=== PATIENT | female | born 1940 | race Two or more races ===

== ENCOUNTER 2025-11-12 11:46 | Inpatient (IN) | payer MEDICAID ==
[~2025-11-12] VITALS: Ht 152.4 cm; Wt 68.3 kg
--- NOTE | 2025-11-12 12:04 | ED.PDOC ---
GI ASSESSMENT HPI Comments 85 y/o F, with PMHx of DM and HTN presents to the ED for CC of abdominal pain. Family reports, patient has been c/o abdominal pain with associated nausea and vomiting onset, last night (11/11/25). Family further relays, patient to have constipation. patient denies urinary symptoms, diarrhea, fever, or chills. Chief Complaint: Abdominal Pain Time Seen by MD: 11:55 Reviewed Notes: Nurses Notes, Medications, Allergies Allergies: Coded Allergies: NO KNOWN ALLERGIES (Unverified , 11/12/25) Information Source: Patient Mode of Arrival: Wheelchair Timing: Hours Duration: Since onset Prehospital treatment: None Vomitus: Watery Stool: Impaction Severity: Moderate Recent Hx of: None Pain Location: Diffuse Modifying Factors: Nothing Associated sign and symptoms: Nausea, Vomiting, Constipation, Abdominal Pain Past Medical History PAST MEDICAL HISTORY: DM, HTN Surgical History: Denies all surgeries MATH PROFESSOR History: Denies all MATH PROFESSOR Hx Family History Family History: Unknown Social History Smoker: Non-Smoker Alcohol: Denies ETOH Use Drugs: Denies Drug Use Lives In: Home Constitutional: denies: chills, diaphoresis, fatigue, fever, malaise, sweats, weakness, others EENTM: denies: blurred vision, double vision, ear bleeding, ear discharge, ear drainage, ear pain, ear ringing, eye pain, eye redness, hearing loss, mouth pain, mouth swelling, nasal discharge, nose bleeding, nose congestion, nose pain, photophobia, tearing, throat pain, throat swelling, voice changes, others Respiratory: denies: cough, hemoptysis, orthopnea, SOB at rest, shortness of breath, SOB with excertion, stridor, wheezing, others Cardiovascular: denies: chest pain, dizzy spells, diaphoresis, Dyspnea on exertion, edema, irregular heart beat, left arm pain, lightheadedness, palpitations, PND, syncope, others Gastrointestinal: reports: abdominal pain, nausea, vomiting; denies: abdomen distended, blood streaked bowels, constipated, diarrhea, dysphagia, difficulty swallowing, hematemesis, melena, poor appetite, poor fluid intake, rectal bleeding, rectal pain, others Genitourinary: denies: abnormal vagina bleeding, burning, dyspareunia, dysuria, flank pain, frequency, hematuria, incontinence, pain, , vagina discharge, urgency, others Neurological: denies: dizziness, fainting, headache, left sided numbness, left sided weakness, numbness, paresthesia, pre-existing deficit, right sided numbness, right sided weakness, seizure, speech problems, tingling, tremors, weakness, others Musculoskeletal: denies: back pain, gout, joint pain, joint swelling, muscle pain, muscle stiffness, neck pain, others Integumetry: denies: bruises, change in color, change in hair/nails, dryness, laceration, lesions, lumps, rash, wounds, others Allergic/Immunocompromised: denies: Difficulty Healing, Frequent Infections, Hives, Itching, others Hematologic/Lymphatic: denies: anemia, blood clots, easy bleeding, easy bruising, swollen glands, others Endocrine: denies: excessive hunger, excessive sweating, excessive thirst, excessive urination, flushing, intolerance to cold, intolerance to heat, unexplained weight gain, unexplained weight loss, others Psychiatric: denies: anxiety, bipolar disorder, depression, hopeless, panic disorder, schizophrenia, sleepless, suicidal, others All Other Systems: Reviewed and Negative Physical Exam General Appearance: Moderate Distress HEENT: Normal ENT Inspection, Pharynx Normal, TMs Normal Neck: Full Range of Motion, Non-Tender, Normal, Normal Inspection Respiratory: Chest Non-Tender, Lungs Clear, No Accessory Muscle Use, No Respiratory Distress, Normal Breath Sounds Cardiovascular: No Edema, No JVD, No Murmur, No Gallop, Normal Peripheral Pulses, Regular Rate/Rhythm Breast Exam: Deferred Gastrointestinal: Diffuse Genitalia: Deferred Pelvic: Deferred Rectal: Deferred Extremities: No calf tenderness, Normal capillary refill, Normal inspection, Normal range of motion, Non-tender, No pedal edema Musculoskeletal : Apperance: Normal Neurologic: Alert, historian dramatic arts II-XII nml as Tested, No Motor Deficits, Normal Affect, Normal Mood, No Sensory Deficits Cerebellar Function: NOT DONE Reflexes: NOT DONE Skin: Dry, Normal Color, Warm Peripheral Pulses: 3+ Radial (R), 3+ Radial (L) Lymphatic: No Adenopathy Was a procedure done? Was a procedure done?: No GI differential Dx Differential Diagnosis: Bowel Obstruction, Constipation, Diverticular disease, Esophagitis, Gastritis/PUD, Gastroenteritis, Bacterial, Viral X-Ray, Labs, Meds, VS Vital Signs Date Time Temp Pulse Resp B/P (MAP) Pulse Ox O2 Delivery O2 Flow Rate FiO2 11/12/25 14:16 98.1 72 17 158/76 (103) 96 98.1 11/12/25 12:15 98.1 96 16 163/76 (105) 73 98.1 11/12/25 11:58 73 11/12/25 11:48 98.0 73 22 166/76 96 98.0 Lab Test 11/12/25 12:20 11/12/25 12:14 Range/Units Urine Color Yellow Yellow Urine Clarity Clear Clear Urine pH 5.0 5.0-9.0 Urine Specific [place] 1.022 1.001-1.035 Urine Protein 1+ H Negative Urine Ketones Trace Negative Urine Blood 1+ H Negative /uL Urine Nitrite Negative Negative Urine Bilirubin Negative Negative Urine Urobilinogen Normal Negative mg/dL Urine Leukocyte Esterase Negative Negative /uL Urine RBC 1 0 - 4 /hpf Urine Microscopic WBC 1 0-5 /HPF Urine Squamous Epithelial Cells Few <5 /hpf Urine Bacteria None seen None Seen /hpf Urine Hyaline Casts Few 0 - 2 /lpf Urine Mucus Few None Seen Urine Glucose 4+ H Normal mg/dL White Blood Count 22.4 H 4.4-10.8 10^3/uL Red Blood Count 5.05 4.0-5.20 10^6/uL Hemoglobin 15.0 12.2-16.2 g/dL Hematocrit 45.6 36.0-46.0 % Mean Corpuscular Volume 90.3 80.0-100.0 fL Mean Corpuscular Hemoglobin 29.7 28.0-32.0 pg Mean Corpuscular Hemoglobin Concent 32.9 32.0-36.0 g/dL Red Cell Distribution Width 13.9 11.8-14.3 % Platelet Count 284 140-450 10^3/uL Mean Platelet Volume 8.5 6.9-10.8 fL Neutrophils (%) (Auto) 37.0-80.0 % Lymphocytes (%) (Auto) 10.0-50.0 % Monocytes (%) (Auto) 0.0-12.0 % Basophils (%) (Auto) 0.0-2.0 % Neutrophils # (Auto) 1.6-8.6 10 ^3/uL Lymphocytes # (Auto) 0.4-5.4 10 ^3/uL Monocytes # (Auto) 0-1.3 10 ^3/uL Differential Total Cells Counted 100.0 100 Neutrophils % (Manual) 92 H 37.0-80.0 Band Neutrophils % (Manual) 3 Lymphocytes % (Manual) 3 L 10.0-50.0 Monocytes % (Manual) 2 0-12 Eosinophils % (Manual) 0 0-7 Basophils % (Manual) 0 0.0-2.0 Metamyelocytes % (manual) 0 Myelocytes % (Manual) 0 Promyelocytes % (Manual) 0 Blast Cells % (Manual) 0 Reactive Lymphocytes 0 Platelet Estimate Adequate Red Blood Cell Morphology Normal Sodium Level 132 L 136-145 mmol/L Potassium Level 3.6 3.5-5.1 mmol/L Chloride Level 98 98-107 mmol/L Carbon Dioxide Level 15 L 20-31 mmol/L Anion Gap 19 H 5-15 Blood Urea Nitrogen 27 H 9-23 mg/dL Creatinine 1.42 H 0.550-1.02 mg/dL Glomerular Filtration Rate Calc 37 >90 mL/min BUN/Creatinine Ratio 19.0 10.0-20.0 Serum Glucose 397 H 74-106 mg/dL Hemoglobin A1c 7.0 H <5.7 % A1C Calcium Level 9.3 8.7-10.4 mg/dL Troponin I High Sensitivity 24 </=34 ng/L Lipase 93 H 12-53 U/L Current Medications Medications (Trade) Dose Ordered Sig/Sharon Route Start Time Stop Time Status Last Admin Sodium Chloride 1,000 ml @ 1,000 mls/hr Q1H ONCE IV 11/12/25 12:00 11/12/25 12:59 DC 11/12/25 13:14 Ondansetron HCl (Zofran) 4 mg ONCE ONCE IV 11/12/25 12:00 11/12/25 12:01 DC 11/12/25 13:14 Ketorolac Tromethamine (Toradol Injection) 30 mg ONCE ONCE IV 11/12/25 12:00 11/12/25 12:01 DC 11/12/25 13:14 Azithromycin 250 ml @ 125 mls/hr ONCE ONCE IV 11/12/25 14:30 11/12/25 16:29 DC 11/12/25 17:[address] [address] Ph: [phone] DIAGNOSTIC IMAGING Diagnostic Imaging Report : [id number] Signed PATIENT: LILLI REY ACCT: [id number] UNIT: [id number] : 1940 LOC: ER ROOM / BED: / AGE / SEX: 85 / F ADM STATUS: REG ER SERVICE 1157 ORDERING PHYSICIAN: SHERMAN SCHAEFFER MD PROCEDURE(s): CXRP - CHEST PORTABLE REASON: sob ORDER NUMBER(s): [id number], ACCESSION NUMBER(s): [id number] CLINICAL HISTORY: sob TECHNIQUE: Single view of the chest was obtained. COMPARISON: None FINDINGS: The heart size is borderline enlarged with pulmonary vascular congestion. There is a large hiatal hernia with adjacent atelectasis. There are patchy right basilar opacities. IMPRESSION: Pulmonary vascular congestion. Patchy right basilar opacities, likely atelectasis or infection. Large hiatal hernia. ATED BY: LUZ MARINA MONTES MD DICTATED DATE/TIME: 11/12/25 1234 SIGNED BY: LUZ MARINA MONTES MD SIGNED DATE/TIME: 11/12/25 1234 CC: [place] [address] Ph: [phone] DIAGNOSTIC IMAGING Diagnostic Imaging Report : [id number] Signed PATIENT: LILLI REY ACCT: [id number] UNIT: [id number] : 1940 LOC: OVERFLOW ROOM / BED: 1010-ER / A AGE / SEX: 85 / F ADM STATUS: ADM IN SERVICE 1511 ORDERING PHYSICIAN: LEANNE MILES PHP ENGINEER PROCEDURE(s): ABPL - CT AB PEL WO CON-NO ORAL OR IV REASON: abd pain ORDER NUMBER(s): [id number], ACCESSION NUMBER(s): [id number] CLINICAL HISTORY: abd pain TECHNIQUE: CT of the abdomen and pelvis was performed without intravenous contrast. This exam was performed according to our departmental dose optimization program. Up-to-date CT equipment and radiation dose reduction techniques are utilized as appropriate. WID: COMPARISON: None FINDINGS: Lung bases: Trace left pleural effusion. Coronary artery calcium. Liver: Extensive intraparenchymal portal venous gas.. Gallbladder and bile ducts: Status post cholecystectomy. Spleen: Unremarkable. Pancreas: Unremarkable. Adrenals: Unremarkable. Kidneys and ureters: Unremarkable. Bowel: Near-complete intrathoracic positioning of the stomach secondary to a large hiatal hernia. There circumferential pneumatosis within the gastric body and fundus. There is pneumatosis throughout the entirety of the mid to distal small bowel. The colon is unremarkable. There is no obstruction. Bladder: Unremarkable. Reproductive organs: Unremarkable. Lymph nodes: Unremarkable. Vessels: Extensive atherosclerotic calcifications. Bulky calcification of the origin of the superior mesenteric artery. Abdominal wall: Unremarkable. Bones: Severe chronic compression fracture of L1 with approximately 90% height loss. There is 4 mm of retropulsion. The bones are demineralized.. Other: Unremarkable. IMPRESSION: Extensive mid to distal small bowel pneumatosis with portal venous gas and extensive pneumatosis within the stomach which is intrathoracic in position secondary to hiatal hernia. Findings are compatible with bowel ischemia. No free air. But bulky calcific plaque within the abdominal aorta, notably at the origin of the superior mesenteric artery which may be chronically occluded or highly stenosed. Consider CTA angiogram for further assessment given the findings above. Chronic L1 compression fracture with 90% height loss Critical Result: bowel ischemia Findings discussed with SHERMAN SCHAEFFER at 11/12/2025 05:00 PM, and acknowledged receipt and understanding of the findings. .. ATED BY: ROYAL RIOS MD DICTATED DATE/TIME: 11/12/251699 SIGNED BY: ROYAL RIOS MD SIGNED DATE/TIME: 11/12/251699 CC: Patient alert. Came in because of abdominal pain. Vitals stable. Answering all questions. Possible pneumonia. Chest x-ray reviewed does show congestion with pneumonia. Establish intravenous access. Was given Zosyn. Was given azithromycin. Blood sugar elevated. CT scan of the abdomen reviewed does show ischemic bowel. Spoke with surgeon. Unable to operate because of the extensive involvement. Family did not want any heroic measures. She is DNR. Surgeon has spoken to the family they all agree only palliative care. Pain control. Spoke with [facility] they also agree no surgery. Explained to the family. Continue monitoring. Time of 1ST Reevaluation: 12:25 Reevaluation 1ST: Unchanged Patient Education/Counseling: Diagnosis, Treatment Family Education/Counseling: Diagnosis, Treatment SEPSIS Sepsis Screen Date sepsis recognized/suspect: Nov 12, 2025 Time Sepsis recognized/suspect: 1150 Recent Procedure: No On Antibiotic Therapy: No Respiratory Rate >20: Yes Heart Rate >90: Yes Temp<36 C (96.8 F) or >38.3 C: No SBP <90 or MAP <65 mmHG: No New Acute Mental Status Change: No Is the patient on CPAP, BIPAP,: No Physician Orders Electrocardigram (11/12/25 11:51) Chest Portable (11/12/25 11:57) Covid19 Antigen Jovanna (11/12/25 ) Rapid Influenza A&B (11/12/25 14:41) Vital Signs Date Time Temp Pulse Resp B/P (MAP) Pulse Ox O2 Delivery O2 Flow Rate FiO2 11/12/25 14:16 98.1 72 17 158/76 (103) 96 98.1 11/12/25 12:15 98.1 96 16 163/76 (105) 73 98.1 11/12/25 11:58 73 11/12/25 11:48 98.0 73 22 166/76 96 98.0 Laboratory Tests Test 11/12/25 12:14 White Blood Count 22.4 10^3/uL (4.4-10.8) H Medications Medications Dose Ordered Sig/Sharon Route Start Time Stop Time Status Last Admin Dose Admin Azithromycin 250 ml @ 125 mls/hr ONCE ONCE IV 11/12/25 14:30 11/12/25 16:29 DC 11/12/25 17:12 Ketorolac Tromethamine 30 mg ONCE ONCE IV 11/12/25 12:00 11/12/25 12:01 DC 11/12/25 13:14 Ondansetron HCl 4 mg ONCE ONCE IV 11/12/25 12:00 11/12/25 12:01 DC 11/12/25 13:14 Sodium Chloride 1,000 ml @ 1,000 mls/hr Q1H ONCE IV 11/12/25 12:00 11/12/25 12:59 DC 11/12/25 13:14 Departure 1 Departure Time of Disposition: 14:21 Impression: Primary Impression: Pneumonia Qualified Codes: J18.9 - Pneumonia, unspecified organism Additional Impressions: Sepsis, unspecified organism Qualified Codes: A41.9 - Sepsis, unspecified organism Ischemic bowel disease Disposition: 09 ADMITTED INPATIENT Admit to: Med Surg Condition: Guarded Critical Care Note Critical Care Time?: Yes (90 min-critical care time only) Stability Stability form required: No Heart Score Heart Score: Heart Score Response (Comments) Value History Slightly Suspicious 0 EKG Normal 0 Age >65 2 Risk Factors >3 or Hx ASHD 2 Troponin Normal limit 0 Total 4 I personally scribed for SHERMAN SCHAEFFER MD ([email or web address]) on 11/12/25 at 12:04. Electronically submitted by Nicole Collins ([email or web address]). I personally scribed for SHERMAN SCHAEFFER MD ([email or web address]) on 11/12/25 at 13:13. Electronically submitted by Nicole Collins ([email or web address]). I personally scribed for SHERMAN SCHAEFFER MD ([email or web address]) on 11/12/25 at 17:42. Electronically submitted by Izabela Wu ([email or web address]). SHERMAN SCHAEFFER MD Nov 12, 2025 12:04
[2025-11-12 12:26] LABS: Hematocrit 45.6 % (36.0-46.0); Hemoglobin 15.0 g/dL (12.2-16.2); Mean Corpuscular Hemoglobin 29.7 pg (28.0-32.0); Mean Corpuscular Volume 90.3 fL (80.0-100.0)
[2025-11-12 12:39] LABS: Potassium 3.6 mmol/L (3.5-5.1)
[2025-11-12 12:40] LABS: Anion Gap 19 (5-15); Calcium 9.3 mg/dL (8.7-10.4)
[2025-11-12 12:42] LABS: Carbon Dioxide 15 mmol/L (20-31); Chloride 98 mmol/L (98-107); Sodium 132 mmol/L (136-145)
[2025-11-12 12:45] LABS: BUN/Creatinine Ratio 19.0 (10.0-20.0)
[2025-11-12 12:46] LABS: Blood Urea Nitrogen 27 mg/dL (9-23); Glucose 397 mg/dL (74-106)
--- NOTE | 2025-11-12 12:52 | DVH ---
CLINICAL HISTORY: sob TECHNIQUE: Single view of the chest was obtained. COMPARISON: None FINDINGS: The heart size is borderline enlarged with pulmonary vascular congestion. There is a large hiatal hernia with adjacent atelectasis. There are patchy right basilar opacities. IMPRESSION: Pulmonary vascular congestion. Patchy right basilar opacities, likely atelectasis or infection. Large hiatal hernia.
[2025-11-12 12:57] LABS: RBC Morphology Normal; Total Cells Counted 100.0 (100)
[2025-11-12] MEDS: ONDANSETRON HCL 4 MG/2 ML VIAL IV ONE (13:14)
[2025-11-12] MEDS: KETOROLAC TROMETH 30 MG/ML 1ML VIAL IV ONE (13:14)
[2025-11-12] MEDS: SODIUM CHLORIDE 0.9% 1,000 ML IV ONE (13:14)
[2025-11-12] MEDS ORDERED: PIPERACILLIN-TAZOB 3.375GM 100 ML IV ONE (14:30)
[2025-11-12] MEDS ORDERED: HYDROcodone-ACET 5/325MG TAB PO PRN ×2 (15:15→22:30)
[2025-11-12] MEDS ORDERED: DEXTROSE (50%) 50ML SYRG IV PRN ×2 (15:15→22:30)
[2025-11-12] MEDS ORDERED: ACETAMINOPHEN 325 MG TAB PO PRN ×2 (15:15→22:30)
[2025-11-12] MEDS ORDERED: hydrALAZINE HCL 20 MG/ML VL IV PRN ×2 (15:30→22:30)
--- NOTE | 2025-11-12 15:32 | DVHHP2 ---
History of Present Illness Reason for Visit: Abdominal pain History of Present Illness 85-year-old Armenian speaking female presents to the ED accompanied by her granddaughter for evaluation of abdominal pain associated with nausea and vomiting that began yesterday. Patient denies fever, chills, cough, shortness of breath, chest pain, diarrhea, constipation, melena, hematochezia, or urinary symptoms. No sick contacts or recent travel reported. Past medical history of diabetes type 2 and hypertension. Past Medical History As stated in HPI Past Surgical History Denies Family History Reviewed, non-contributory to the management of this case. Past Social History The patient lives at home, denies smoking, alcohol or illicit drugs abuse. Review of Systems Constitutional: Yes: Malaise; No: Fever, Chills, Sweats, Weakness, Other Eyes: No: Pain, Vision change, Conjunctivae inflammation, Eyelid inflammation, Other, Redness ENT: No: Ear pain, Ear discharge, Nose pain, Nose discharge, Nose congestion, Mouth pain, Mouth swelling, Throat pain, Throat swelling, Other Respiratory: No: Cough, Dry, Shortness of breath, SOB with excertion, Wheezing, Hemoptysis, Pleuritic Pain, Sputum, Wheezing, Other Cardiovascular: No: Chest Pain, Palpitations, Orthopnea, Paroxysmal Noc. Dyspnea, Edema, Lt Headedness, Other Gastrointestinal: Nausea, Vomiting, Abdominal Pain; No: Diarrhea, Constipation, Melena, Hematochezia, Other Genitourinary: No Dysuria, No Frequency, No Incontinence, No Hematuria, No Retention, No Other Musculoskeletal: No: other, neck pain, shoulder pain, arm pain, back pain, hand pain, leg pain, foot pain Skin: No: Rash, Lesions, Jaundice, Bruising, Other Neurological: No: Weakness, Numbness, Incoordination, Change in speech, Confusion, Seizures, Other Allergies: Coded Allergies: NO KNOWN ALLERGIES (Unverified , 11/12/25) Exam Vital Signs Vital Signs Date Time Temp Pulse Resp B/P (MAP) Pulse Ox O2 Delivery O2 Flow Rate FiO2 11/12/25 14:16 98.1 72 17 158/76 (103) 96 98.1 General Appearance: Alert, Oriented X3, Cooperative, mild distress HEENT: Atraumatic, PERRLA, EOMI Respiratory: Other (Diminished lung sounds) Cardiovascular: Regular rate, Normal S1, Normal S2 Abdominal: Normal bowel sounds, Soft, Other (Generalized tenderness in palpation) Extremities: No clubbing, No cyanosis, No edema Skin: No rashes, No breakdown Neuro: Normal gait Psych/Mental Status: Mental status NL Labs/Xrays Labs Test 11/12/25 12:14 Range/Units White Blood Count 22.4 H 4.4-10.8 10^3/uL Red Blood Count 5.05 4.0-5.20 10^6/uL Hemoglobin 15.0 12.2-16.2 g/dL Hematocrit 45.6 36.0-46.0 % Mean Corpuscular Volume 90.3 80.0-100.0 fL Mean Corpuscular Hemoglobin 29.7 28.0-32.0 pg Mean Corpuscular Hemoglobin Concent 32.9 32.0-36.0 g/dL Red Cell Distribution Width 13.9 11.8-14.3 % Platelet Count 284 140-450 10^3/uL Mean Platelet Volume 8.5 6.9-10.8 fL Neutrophils (%) (Auto) 37.0-80.0 % Lymphocytes (%) (Auto) 10.0-50.0 % Monocytes (%) (Auto) 0.0-12.0 % Basophils (%) (Auto) 0.0-2.0 % Neutrophils # (Auto) 1.6-8.6 10 ^3/uL Lymphocytes # (Auto) 0.4-5.4 10 ^3/uL Monocytes # (Auto) 0-1.3 10 ^3/uL Differential Total Cells Counted 100.0 100 Neutrophils % (Manual) 92 H 37.0-80.0 Band Neutrophils % (Manual) 3 Lymphocytes % (Manual) 3 L 10.0-50.0 Monocytes % (Manual) 2 0-12 Eosinophils % (Manual) 0 0-7 Basophils % (Manual) 0 0.0-2.0 Metamyelocytes % (manual) 0 Myelocytes % (Manual) 0 Promyelocytes % (Manual) 0 Blast Cells % (Manual) 0 Reactive Lymphocytes 0 Platelet Estimate Adequate Red Blood Cell Morphology Normal Sodium Level 132 L 136-145 mmol/L Potassium Level 3.6 3.5-5.1 mmol/L Chloride Level 98 98-107 mmol/L Carbon Dioxide Level 15 L 20-31 mmol/L Anion Gap 19 H 5-15 Blood Urea Nitrogen 27 H 9-23 mg/dL Creatinine 1.42 H 0.550-1.02 mg/dL Glomerular Filtration Rate Calc 37 >90 mL/min BUN/Creatinine Ratio 19.0 10.0-20.0 Serum Glucose 397 H 74-106 mg/dL Calcium Level 9.3 8.7-10.4 mg/dL Troponin I High Sensitivity 24 </=34 ng/L PROCEDURE(s): CXRP - CHEST PORTABLE REASON: sob ORDER NUMBER(s): [id number], ACCESSION NUMBER(s): [id number] CLINICAL HISTORY: sob TECHNIQUE: Single view of the chest was obtained. COMPARISON: None FINDINGS: The heart size is borderline enlarged with pulmonary vascular congestion. There is a large hiatal hernia with adjacent atelectasis. There are patchy right basilar opacities. IMPRESSION: Pulmonary vascular congestion. Patchy right basilar opacities, likely atelectasis or infection. Large hiatal hernia. SEPSIS Sepsis Screen Date sepsis recognized/suspect: Nov 12, 2025 Time Sepsis recognized/suspect: 1150 Recent Procedure: No On Antibiotic Therapy: No Respiratory Rate >20: Yes Heart Rate >90: Yes Temp<36 C (96.8 F) or >38.3 C: No SBP <90 or MAP <65 mmHG: No New Acute Mental Status Change: No Is the patient on CPAP, BIPAP,: No Physician Orders Electrocardigram (11/12/25 11:51) Chest Portable (11/12/25 11:57) Urinalysis (11/12/25 11:57) Piperacillin-Tazob 3.375gm (Zosyn 3.375g (11/12/25 14:30) Azithromycin 500mg/250ml (Zithromax 500m (11/12/25 14:30) Covid19 Antigen Jovanna (11/12/25 ) Rapid Influenza A&B (11/12/25 14:41) Urine Bacterial Culture (11/12/25 15:11) Blood Culture (11/12/25 15:11) Ct Ab Pel Wo Con-No Oral Or Iv (11/12/25 15:11) Pantoprazole (Protonix) (11/12/25 15:15) Pantoprazole (Protonix) (11/13/25 10:00) Azithromycin 500mg/250ml (Zithromax 500m (11/13/25 10:00) Ceftriaxone Ivpb Rocephin (11/13/25 09:00) Glucose Blood (Accu-Chek Comfort Curve T (11/12/25 17:00) Mild Sliding Scale (11/12/25 17:00) Dextrose 50% Syringe (11/12/25 15:15) Hemoglobin A1c (11/12/25 15:11) Admit (11/12/25 15:11) Code Status (11/12/25 15:11) 0.9% Ns 1000 Ml (11/12/25 15:15) Hydrocodone-Acet 5/325mg Tab ([place] 5/32 (11/12/25 15:15) Ondansetron Hcl (Zofran) (11/12/25 15:15) Enoxaparin Sodium (Lovenox) (11/13/25 10:00) Fall Risk Precautions In Place QSHIFT (11/12/25 15:11) Complete Blood Count (11/13/25 04:00) Comprehensive Metabolic Panel (11/13/25 04:00) Condition: Fair (11/12/25 15:11) Acetaminophen Tablet (Tylenol Tablet) (11/12/25 15:15) Clear Liq Diet (11/12/25 Dinner) Morphine Sulfate Injection (11/12/25 15:15) Lipase (11/12/25 15:11) Lactic Acid W/ Reflex Order (11/12/25 15:11) Vital Signs Date Time Temp Pulse Resp B/P (MAP) Pulse Ox O2 Delivery O2 Flow Rate FiO2 11/12/25 14:16 98.1 72 17 158/76 (103) 96 98.1 11/12/25 12:15 98.1 96 16 163/76 (105) 73 98.1 11/12/25 11:58 73 11/12/25 11:48 98.0 73 22 166/76 96 98.0 Laboratory Tests Test 11/12/25 12:14 White Blood Count 22.4 10^3/uL (4.4-10.8) H Medications Medications Dose Ordered Sig/Sharon Route Start Time Stop Time Status Last Admin Dose Admin Ketorolac Tromethamine 30 mg ONCE ONCE IV 11/12/25 12:00 11/12/25 12:01 DC 11/12/25 13:14 30 MG Ondansetron HCl 4 mg ONCE ONCE IV 11/12/25 12:00 11/12/25 12:01 DC 11/12/25 13:14 4 MG Sodium Chloride 1,000 ml @ 1,000 mls/hr Q1H ONCE IV 11/12/25 12:00 11/12/25 12:59 DC 11/12/25 13:14 1,000 MLS/HR Assessment/Plan Assessment/Plan # Acute abdominal pain with nausea and vomiting # rule out bowel obstruction large hiatal hernia seen in x-ray Admit to medical-surgical unit Clear liquid diet and advance as tolerated IV fluid Antiemetics CT abdomen/pelvis ordered UA and urine culture pending PPI # possible pneumonia given opacity and leukocytosis # pulmonary vascular congestion Empiric antibiotic azithromycin and ceftriaxone Blood and sputum culture Check for COVID and influenza Repeat chest x-ray in a.m. # LILY likely VMN IV fluid hydration Avoid nephrotoxins Monitor kidney function # DM type 2 Insulin sliding scale Check A1c # hypertension Continue with antihypertensive medication Monitor BP DVT, PPI prophylaxis Medical plan discussed with patient and daughter at the bedside Plan discussed with: Patient, Daughter My Orders Orders - LEANNE MILES [employer] Procedure Category Date Status Time Covid19 Antigen Jovanna LAB 11/12/25 Logged Rapid Influenza A&B LAB 11/12/25 Logged 14:41 Urine Bacterial VASU 11/12/25 Verified Culture 15:11 Blood Culture VASU 11/12/25 Verified 15:11 Ct Ab Pel Wo Con-No CT 11/12/25 Verified Oral Or Iv 15:11 Pantoprazole PHA 11/12/25 Verified (Protonix) 15:15 Pantoprazole PHA 11/13/25 Verified (Protonix) 10:00 Azithromycin PHA 11/13/25 Verified 500mg/250ml 10:00 Ceftriaxone Ivpb PHA 11/13/25 Verified Rocephin 09:00 Glucose Blood PHA 11/12/25 Verified (Accu-Chek Comfort 17:00 Mild Sliding Scale PHA 11/12/25 Verified 17:00 Dextrose 50% Syringe PHA 11/12/25 Verified 15:15 Hemoglobin A1c LAB 11/12/25 Verified 15:11 Admit ADMIT 11/12/25 Verified 15:11 Code Status CODE 11/12/25 Verified 15:11 0.9% Ns 1000 Ml PHA 11/12/25 Verified 15:15 Hydrocodone-Acet PHA 11/12/25 Verified 5/325mg Tab ([place] 15:15 Ondansetron Hcl PHA 11/12/25 Verified (Zofran) 15:15 Enoxaparin Sodium PHA 11/13/25 Verified (Lovenox) 10:00 Fall Risk Precautions EMILY 11/12/[address] 15:11 Complete Blood Count LAB 11/13/25 Verified 04:00 Comprehensive LAB 11/13/25 Verified Metabolic Panel 04:00 Condition: Fair EMILY 11/12/25 Verified 15:11 Acetaminophen Tablet PHA 11/12/25 Verified (Tylenol Tablet) 15:15 Clear Liq Diet DIET 11/12/25 Verified Dinner Morphine Sulfate PHA 11/12/25 Verified Injection 15:15 Lipase LAB 11/12/25 Verified 15:11 Lactic Acid W/ Reflex LAB 11/12/25 Verified Order 15:11 Date of Service: Nov 12, 2025 Billing Provider: LEANNE MILES Common Visit Codes: [id number] INP/OBS CARE (HIGH) LEANNE MILES Nov 12, 2025 15:32
[2025-11-12 15:45] LABS: Urine Protein, UAD 1+ (Negative)
[2025-11-12 16:41] LABS: Lactic Acid w/Reflex 4.4 mmol/L (0.4-2.0)
--- NOTE | 2025-11-12 17:00 | DVH ---
CLINICAL HISTORY: abd pain TECHNIQUE: CT of the abdomen and pelvis was performed without intravenous contrast. This exam was performed according to our departmental dose optimization program. Up-to-date CT equipment and radiation dose reduction techniques are utilized as appropriate. WID: COMPARISON: None FINDINGS: Lung bases: Trace left pleural effusion. Coronary artery calcium. Liver: Extensive intraparenchymal portal venous gas.. Gallbladder and bile ducts: Status post cholecystectomy. Spleen: Unremarkable. Pancreas: Unremarkable. Adrenals: Unremarkable. Kidneys and ureters: Unremarkable. Bowel: Near-complete intrathoracic positioning of the stomach secondary to a large hiatal hernia. There circumferential pneumatosis within the gastric body and fundus. There is pneumatosis throughout the entirety of the mid to distal small bowel. The colon is unremarkable. There is no obstruction. Bladder: Unremarkable. Reproductive organs: Unremarkable. Lymph nodes: Unremarkable. Vessels: Extensive atherosclerotic calcifications. Bulky calcification of the origin of the superior mesenteric artery. Abdominal wall: Unremarkable. Bones: Severe chronic compression fracture of L1 with approximately 90% height loss. There is 4 mm of retropulsion. The bones are demineralized.. Other: Unremarkable. IMPRESSION: Extensive mid to distal small bowel pneumatosis with portal venous gas and extensive pneumatosis within the stomach which is intrathoracic in position secondary to hiatal hernia. Findings are compatible with bowel ischemia. No free air. But bulky calcific plaque within the abdominal aorta, notably at the origin of the superior mesenteric artery which may be chronically occluded or highly stenosed. Consider CTA angiogram for further assessment given the findings above. Chronic L1 compression fracture with 90% height loss Critical Result: bowel ischemia Findings discussed with SHERMAN SCHAEFFER at 11/12/2025 05:00 PM, and acknowledged receipt and understanding of the findings. ..
[2025-11-12] MEDS: MORPHINE SULFATE 4 MG/ML SYR/VIAL IV PRN ×2 (17:11→22:46)
[2025-11-12] MEDS: ONDANSETRON HCL 4 MG/2 ML VIAL IV PRN (17:11)
[2025-11-12] MEDS: PANTOPRAZOLE 40 MG/10 ML VIAL INJ IV ONE (17:12)
[2025-11-12] MEDS: AZITHROMYCIN 500MG/250ML 250 ML IV ONE (17:12)
[2025-11-12] MEDS: ACCU-CHEK COMFORT CURVE STRIP VI SCH (17:17)
[2025-11-12] MEDS ORDERED: NITROGLYCERIN 0.4 MG SL TAB SL PRN (18:15)
[2025-11-12] MEDS ORDERED: MORPHINE SULFATE 4 MG/ML SYR/VIAL IV PRN (18:15)
--- NOTE | 2025-11-12 18:29 | DVHINCON2 ---
Consultation - Surgical Date Seen: Nov 12, 2025 Referring Physician Reason for Consultation Pneumatosis intestinalis History of Present Illness History of Present Illness Mrs. Mccray is a 85-year-old female who presented today to the ED with abdominal pain and distention that started yesterday around 7:00 p.m. the pain kept progressing all throughout the night, to the point that she was not able to sleep all night. Is associated with nausea but no vomiting. Denies any recent bowel movements since the pain started. Before the pain started patient was well and without complaints. Patient states that she is tired and sleepy. Past Medical/Surgical History Past Medical/Surgical History PMH diabetes, hypertension PSH laparoscopic cholecystectomy Family and Social History Family and Social History Family history noncontributory Allergies and medications Allergies: Coded Allergies: NO KNOWN ALLERGIES (Unverified , 11/12/25) Review of systems Review of Systems: Deferred Examination Vital signs Vital Signs Date Time Temp Pulse Resp B/P (MAP) Pulse Ox O2 Delivery O2 Flow Rate FiO2 11/12/25 17:11 65 15 112/63 11/12/25 14:16 98.1 96 98.1 Medications Current Medications Medications (Trade) Dose Ordered Sig/Sharon Route PRN Reason Start Time Stop Time Status Last Admin Pantoprazole Sodium (Protonix) 40 mg DAILY IV 11/13/25 10:00 Azithromycin 250 ml @ 125 mls/hr DAILY IV 11/13/25 10:00 Ceftriaxone Sodium 50 ml @ 100 mls/hr DAILY@09 IV 11/13/25 09:00 Diagnostic Test (Pha) (Accu-Chek Comfort Curve T) 1 strip ACHS 11/12/25 17:00 11/12/25 17:17 Insulin Human Regular (InsuLIN R) ACHS SC 11/12/25 17:00 Dextrose 50 ml UD PRN IV Blood Sugar LESS THAN 60 11/12/25 15:15 Sodium Chloride 1,000 ml @ 60 mls/hr [id number] IV 11/12/25 15:15 Acetaminophen/ Hydrocodone Bitart ([place] 5/325MG Tab) 1 tab Q4HP PRN PO MODERATE PAIN (4-6 PAIN SCALE) 11/12/25 15:15 Ondansetron HCl (Zofran) 4 mg Q4HP PRN IV NAUSEA / VOMITING 11/12/25 15:15 11/12/25 17:11 Enoxaparin Sodium (Lovenox) 30 mg DAILY SC 11/13/25 10:00 Acetaminophen (Tylenol Tablet) 650 mg Q6HP PRN PO PAIN SCALE 1-3 OR TEMP>100.4 11/12/25 15:15 Morphine Sulfate 2 mg Q4HPRN PRN IV SEVERE PAIN (7-10 PAIN SCALE) 11/12/25 15:30 11/12/25 17:11 Hydralazine HCl (Apresoline Injection) 10 mg Q6HP PRN IV SBP>150 11/12/25 15:30 Nitroglycerin (Ntrostat Sublingual) 0.4 mg Q5MINP PRN SL FOR CHEST PAIN 11/12/25 18:15 Morphine Sulfate 2 mg Q30M PRN IV FOR CHEST PAIN 11/12/25 18:15 Laboratory Labs Test 11/12/25 17:28 11/12/25 12:20 11/12/25 12:14 Range/Units Urine Color Yellow Yellow Urine Clarity Clear Clear Urine pH 5.0 5.0-9.0 Urine Specific [place] 1.022 1.001-1.035 Urine Protein 1+ H Negative Urine Ketones Trace Negative Urine Blood 1+ H Negative /uL Urine Nitrite Negative Negative Urine Bilirubin Negative Negative Urine Urobilinogen Normal Negative mg/dL Urine Leukocyte Esterase Negative Negative /uL Urine RBC 1 0 - 4 /hpf Urine Microscopic WBC 1 0-5 /HPF Urine Squamous Epithelial Cells Few <5 /hpf Urine Bacteria None seen None Seen /hpf Urine Hyaline Casts Few 0 - 2 /lpf Urine Mucus Few None Seen Urine Glucose 4+ H Normal mg/dL White Blood Count 22.4 H 4.4-10.8 10^3/uL Red Blood Count 5.05 4.0-5.20 10^6/uL Hemoglobin 15.0 12.2-16.2 g/dL Hematocrit 45.6 36.0-46.0 % Mean Corpuscular Volume 90.3 80.0-100.0 fL Mean Corpuscular Hemoglobin 29.7 28.0-32.0 pg Mean Corpuscular Hemoglobin Concent 32.9 32.0-36.0 g/dL Red Cell Distribution Width 13.9 11.8-14.3 % Platelet Count 284 140-450 10^3/uL Mean Platelet Volume 8.5 6.9-10.8 fL Neutrophils (%) (Auto) 37.0-80.0 % Lymphocytes (%) (Auto) 10.0-50.0 % Monocytes (%) (Auto) 0.0-12.0 % Basophils (%) (Auto) 0.0-2.0 % Neutrophils # (Auto) 1.6-8.6 10 ^3/uL Lymphocytes # (Auto) 0.4-5.4 10 ^3/uL Monocytes # (Auto) 0-1.3 10 ^3/uL Differential Total Cells Counted 100.0 100 Neutrophils % (Manual) 92 H 37.0-80.0 Band Neutrophils % (Manual) 3 Lymphocytes % (Manual) 3 L 10.0-50.0 Monocytes % (Manual) 2 0-12 Eosinophils % (Manual) 0 0-7 Basophils % (Manual) 0 0.0-2.0 Metamyelocytes % (manual) 0 Myelocytes % (Manual) 0 Promyelocytes % (Manual) 0 Blast Cells % (Manual) 0 Reactive Lymphocytes 0 Platelet Estimate Adequate Red Blood Cell Morphology Normal Sodium Level 132 L 136-145 mmol/L Potassium Level 3.6 3.5-5.1 mmol/L Chloride Level 98 98-107 mmol/L Carbon Dioxide Level 15 L 20-31 mmol/L Anion Gap 19 H 5-15 Blood Urea Nitrogen 27 H 9-23 mg/dL Creatinine 1.42 H 0.550-1.02 mg/dL Glomerular Filtration Rate Calc 37 >90 mL/min BUN/Creatinine Ratio 19.0 10.0-20.0 Serum Glucose 397 H 74-106 mg/dL Hemoglobin A1c 7.0 H <5.7 % A1C Calcium Level 9.3 8.7-10.4 mg/dL Troponin I High Sensitivity 24 </=34 ng/L Lipase 93 H 12-53 U/L Examination: GENERAL:Normal (Alert and awake, tired appearing and sleepy), ABDOMEN:Abnormal (Distended, depressible, generalized tenderness with rebound) Problem List/Assessment/Plan Problems: (1) Pneumatosis intestinalis of small intestine Assessment and Plan Mrs. Mccray is a 85-year-old female who presented with the abdominal pain and distention that started last night around 7:[address] shows a large hiatal hernia with almost the entire stomach in the chest cavity with complete pneumatosis of the stomach, it also shows pneumatosis of the small intestine of the mid to distal small intestine, also has portal venous gas and and small amounts of free air in the mesentery of the small bowel. Given the extension of the disease which involves almost the entire small bowel and the stomach, surg paul is not an option as it would render her condition compatible with life; as she would not have enough intestines to reconstruct her or for nutrient absorption. Also given the extent of the disease process I do not believe she can survive the surgery or the immediate hours after the surgery. I had an extensive discussion with the patient in her [place] language of [place], with her daughter and with her granddaughter and thoroughly explained the disease process, the CT findings, the options, and my opinion. Patient and family elected to proceed with comfort focused care. Plan discussed with Plan discussed with: Patient, Daughter, Other (Granddaughter) Visit Coding Surgery Date of Service if different f: Nov 12, 2025 Billing Provider: INES MAGDALENO MD Surgery Visit Codes: 18965 - INP CONSULT <110 MIN INES MAGDALENO MD Nov 12, 2025 18:29
[2025-11-12 18:45] VITALS: PULSE 60; RESP 38; O2SAT 92
[2025-11-12 19:40] VITALS: RESP 32; O2SAT 95
[2025-11-12] MEDS: SODIUM CHLORIDE 0.9% 1,000 ML IV SCH (19:58)
[2025-11-12] MEDS: InsuLIN REG 1unit/0.01ml Soln (100units/ml) SC SCH ×2 (19:58→23:27)
[2025-11-12 21:53] VITALS: BP 144/60; PULSE 60; RESP 17; TEMP 97.4; O2SAT 93
[2025-11-12] MEDS ORDERED: ONDANSETRON HCL 4 MG/2 ML VIAL IV PRN (22:30)
[2025-11-13] VITALS (23 sets, daily range): BP systolic 73–176; BP diastolic 40–81; PULSE 34–87; RESP 15–37; TEMP 87.4–97.2; O2SAT 9–97
[2025-11-13] MEDS: MIDAZOLAM DRIP 100 mg/100mL NS 100 ML IV ONE (05:19)
[2025-11-13] MEDS: fentaNYL Drip 2500mCg/250mlNS 250 ML IV ONE (05:19)
[2025-11-13] MEDS: NOREPINEPHRINE 8 MG/250ML KIT 250 ML IV ONE (05:22)
--- NOTE | 2025-11-13 05:27 | RESUS ---
CODE BLUE ASSESSSMENT History of Events History of Events: Rapid response called for difficulty breathing. Pt was assessed for comfort measures; family at bedside requested to call family and then requested pt full code. Pt was assessed for palpable pulses, none detected. CPR initiated and CODE BLUE called. Initial Information Date: Nov 13, 2025 Time: 04:36 [place] of Arrest: [place] Witnessed: Yes CPR started initial time: 04:36 CPR started by whom: Hospital Staff Pre-Hospital Care: Pre-Code Care (inpatient) Type of arrest: Cardiac, Adult, Witnessed Spontaneous Respirations: No Pulse Present: No Monitoring: Pulse Oximetry Crash Cart Opened and Supplies: Yes Airway Ventilation Breathing at Onset: Agonal Oxygen Delivery Method: Ambu-Bag Time of first Assisted Ventila: 04:36 Artificial Ventilation: Bag/Mask Intubation Time: 04:41 Intubation Size: 7.0 cuffed Intubated by: Dr Posada - Resident Intubation Attempts: 2 Intubated orally: Yes Intubated Nasaly: No Tube secured at: 24 (cm @ lip) Cricoid pressure done: Yes CO2 indicator used: Yes Confirmation: Auscultation, Exhaled CO2 Suctioning (Oral/Tracheal): Yes Comments: 1st attempt @ 0440 by resident Swetha; unsuccessful Circulation Circulation #1: Time: 04:36 Pulse Rate (adult): 0 Blood Pressure Systolic: 0 Blood Pressure Diastolic: 0 Temperature (Fahrenheit): 96.4 (F; rectal) Circulation #2: Time: 04:38 Pulse Rate (adult): 0 Blood Pressure Systolic: 0 Blood Pressure Diastolic: 0 Circulation Comment: Asystole Circulation #3: Time: 04:40 Pulse Rate (adult): 0 Blood Pressure Systolic: 0 Blood Pressure Diastolic: 0 Circulation Comment: Asystole Circulation #4: Time: 04:42 Pulse Rate (adult): 0 Blood Pressure Systolic: 0 Blood Pressure Diastolic: 0 Circulation Comment: Asystole Circulation #5: Time: 04:44 Pulse Rate (adult): 0 Blood Pressure Systolic: 0 Blood Pressure Diastolic: 0 Circulation Comment: Asystole Circulation #6: Time: 04:46 Pulse Rate (adult): 0 Blood Pressure Systolic: 0 Blood Pressure Diastolic: 0 Circulation Comment: Asystole Circulation #7: Time: 04:48 Pulse Rate (adult): 127 Blood Pressure Systolic: 215 Blood Pressure Diastolic: 104 Circulation Comment: ROSC Circulation #8: Time: 04:54 Pulse Rate (adult): 95 Blood Pressure Systolic: 176 Blood Pressure Diastolic: 81 Circulation #9: Time: 05:00 Pulse Rate (adult): 86 Blood Pressure Systolic: 145 Blood Pressure Diastolic: 80 Procedure - IV Procedure - IV #1: IV Side: Left IV Location: Antecubital IV Catheter Type: Saline Lock IV Placed: In Hospital IV Gauge: 22 IV Line Care: Saline Flush Comment IV placed prior to code Procedure - IV #2: IV start time: 04:51 IV Side: Right IV Location: Hand IV Catheter Type: Saline Lock IV Placed: In Hospital IV Placed by Justus Gamino RN IV Gauge: 20 IV Line Care: Saline Flush Procedure - IV #3: IV start time: 04:55 IV Location: Antecubital IV Catheter Type: Saline Lock IV Placed: In Hospital IV Placed by Justus Gamino RN IV Gauge: 20 IV Line Care: Saline Flush Procedure - Intraosseous Time of intraosseous: 04:40 Size of intraosseous: 22 Site of Intraosseous: Tibia opal-medial (Left proximal) Intraosseous inserted by: Justus Gamino RN Number of attempts for Intraos: 1 Medications & Response Medications and Responses #1: Medication Time: 04:38 ADULT Medications Given ADULT: Epinephrine 1 mg Route of Administration: IV Heart Rate: 0 EKG Rhythm: Asystole Blood Pressure Systolic: 0 Blood Pressure Diastolic: 0 Respiratory Rate: 0 O2 Sat by Pulse Oximetry: 0 EKG Rhythm: Asystole Medications and Responses #2: Medication Time: 04:42 ADULT Medications Given ADULT: Epinephrine 1 mg Route of Administration: IO Heart Rate: 0 EKG Rhythm: Asystole Blood Pressure Systolic: 0 Blood Pressure Diastolic: 0 Respiratory Rate: 0 O2 Sat by Pulse Oximetry: 0 EKG Rhythm: Asystole Medications and Responses #3: Medication Time: 04:45 ADULT Medications Given ADULT: Sodium Bacarbinate 50 meq Route of Administration: IO Heart Rate: 0 EKG Rhythm: Asystole Blood Pressure Systolic: 0 Blood Pressure Diastolic: 0 Respiratory Rate: 0 EKG Rhythm: Asystole Medications and Responses #4: Medication Time: 04:46 ADULT Medications Given ADULT: Epinephrine 1 mg Route of Administration: IO Heart Rate: 0 EKG Rhythm: Asystole Blood Pressure Systolic: 0 Blood Pressure Diastolic: 0 Respiratory Rate: 0 O2 Sat by Pulse Oximetry: 0 EKG Rhythm: Asystole Nurses Notes Rudolph Coma Scale Eye Opening: None (1) Rudolph Coma Scale Verbal: None (1) Martin Coma Scale Motor: None (1) Glascow Total: 3 Pupil Reaction: Sluggish Bedside Blood Glucose: 85 EKG Rhythm: Sinus Rhythm (NSR with HR 95 @0457) Time Code Ended Time Code Ended: 04:48 Post Arrest Status: Ventilated Outcome of code: Successful Family notified: Yes Attending called: Yes Code Team Present: NISSA Neil - Hospitalist; Swetha - Resident; Justus Gamino, RN - ER Charge; Jayashree Nieto, RN - Horticulture/Floriculture Teacher; Gertrude Santiago, RN - ICU Charge; Yobani Gomez RN - [place] Charge; Parvez Wilkinson RN - Primary RN; Shayna Hill RN - ICU Resource; Adrian Santiago, RN; Violette Gomez, RT; Ellen London, [facility]; Neil S, Post Resuscitation Neurologica Pupil Size: 4 ROSC Time of ROSC: 04:48 Pt Meets Criteria for Therapeu: Yes Jayashree Mendez Nov 13, 2025 05:27
--- NOTE | 2025-11-13 06:33 | DVH ---
CHEST RADIOGRAPH INDICATION: intubation TECHNIQUE: Single frontal view of the chest was obtained COMPARISON: XY CHEST PORTABLE on DOS: 11/12/25 FINDINGS: Lines and Tubes: Endotracheal tube tip projects 2.4 cm above the level of the pj. Lungs: Bibasilar atelectasis. No evidence of focal consolidation. Pleura: No effusion. No pneumothorax. Cardiomediastinal contours: Unremarkable. Moderate hiatal hernia. Bones: Unremarkable IMPRESSION: 1. Endotracheal tube in appropriate position. 2. Bibasilar atelectasis.
[2025-11-13] MEDS: VASOPRESSIN 20 UNIT/ML ONE (06:36)
[2025-11-13] MEDS: PHENYLEPHRINE IV 250 ML IV ONE (06:37)
[2025-11-13] MEDS: MIDAZOLAM DRIP 100 mg/100mL NS 100 ML IV SCH (06:38)
[2025-11-13] MEDS: fentaNYL Drip 2500mCg/250mlNS 250 ML IV SCH (06:41)
[2025-11-13] MEDS: VASOPRESSIN 20 UNITS in SODIUM CHL 0.9% 99 ML IV SCH (06:47)
[2025-11-13] MEDS: NOREPINEPHRINE 8 MG/250ML KIT 250 ML IV SCH (06:50)
[2025-11-13] MEDS: PHENYLEPHRINE IV 250 ML IV SCH (06:50)
[2025-11-13 06:54] LABS: Hematocrit 39.4 % (36.0-46.0); Hemoglobin 12.9 g/dL (12.2-16.2); Mean Corpuscular Hemoglobin 30.1 pg (28.0-32.0); Mean Corpuscular Volume 92.3 fL (80.0-100.0); Nucleated Red Blood Cells % 0.1 %
[2025-11-13] MEDS: ACCU-CHEK COMFORT CURVE STRIP VI SCH (07:00)
[2025-11-13 07:16] LABS: Albumin 3.5 g/dL (3.2-4.8); Alkaline Phosphatase 75 U/L (46-116); Anion Gap 22 (5-15); BUN/Creatinine Ratio 19.5 (10.0-20.0); Bilirubin, Total 0.5 mg/dL (0.2-1.0); Chloride 106 mmol/L (98-107); Sodium 141 mmol/L (136-145); Total Protein 5.8 g/dL (5.7-8.2)
[2025-11-13 07:35] LABS: Alanine Aminotransferase 167 U/L (7-40); Blood Urea Nitrogen 43 mg/dL (9-23); Calcium 8.0 mg/dL (8.7-10.4); Carbon Dioxide 13 mmol/L (20-31); Glucose 71 mg/dL (74-106); Potassium 5.2 mmol/L (3.5-5.1)
--- NOTE | 2025-11-13 08:29 | ECG ---
[facility] Test Date: 2025-11-12 Test Time: 11:58:59 Pat Name: LILLI REY Department: Room: [address] [place] [address] A Gender: F Network Engineering Advisor: ESTELLA : 1940 Requested By: SHERMAN SCHAEFFER Order Number: [id number] Reading MD: dE Dawn Measurements Intervals Reading Rate: 73 P: 64 MD: 162 QRS: 16 QRSD: 74 T: 74 QT: 451 QTc: 497 Interpretive Statements Sinus rhythm Low voltage, precordial leads Borderline T abnormalities, anterior leads ST elevation, consider inferior injury Borderline prolonged QT interval Baseline wander in lead(s) I,II,III,aVR,aVF,V2,V3,V5 Electronically Signed On 11-13-2025 10:33:13 PST by Ed Dawn Please click the below link to view image of tracing.
[2025-11-13] MEDS: DEXTROSE (50%) 50ML SYRG IV PRN (08:56)
[2025-11-13] MEDS: AZITHROMYCIN 500MG/250ML 250 ML IV SCH (09:30)
[2025-11-13] MEDS: PANTOPRAZOLE 40 MG/10 ML VIAL INJ IV SCH (09:30)
[2025-11-13] MEDS: ENOXAPARIN SOD 30 MG/0.3 ML SYRINGE SC SCH (09:31)
--- NOTE | 2025-11-13 11:03 | DVHPN2 ---
Subjective Patient unresponsive Reviewed: Care Plan, H&P, Labs, Medications, Previous Orders, Radiology Changes from previous H/P or p: No Changes General: Per HPI Eyes: No Pain, No Vision change, No Conjunctivae inflammation, No Eyelid inflammation, No Other, No Redness ENT: No Ear pain, No Ear discharge, No Nose pain, No Nose discharge, No Nose congestion, No Mouth pain, No Mouth swelling, No Throat pain, No Throat swelling, No Other Cardiovascular: No Chest Pain, No Palpitations, No Orthopnea, No Paroxysmal Noc. Dyspnea, No Edema, No Lt Headedness, No Other Respiratory: No Cough, No Dry, No Shortness of breath, No SOB with excertion, No Wheezing, No Hemoptysis, No Pleuritic Pain, No Sputum, No Other Gastrointestinal: Nausea, Vomiting, Abdominal Pain; No Diarrhea, No Constipation, No Melena, No Hematochezia, No Other Genitourinary: No Dysuria, No Frequency, No Incontinence, No Hematuria, No Retention, No Other Musculoskeletal: No other, No neck pain, No shoulder pain, No arm pain, No back pain, No hand pain, No leg pain, No foot pain Skin: No Rash, No Lesions, No Jaundice, No Bruising, No Other Objective Vitals Vital Signs Date Time Temp Pulse Resp B/P (MAP) Pulse Ox O2 Delivery O2 Flow Rate FiO2 11/13/25 10:00 96.1 63 25 100/49 (66) 89 205.0 11/13/25 09:44 100 11/13/25 09:44 Mechanical Ventilator+ 11/12/25 22:00 3 Intake/Output Intake and Output 11/13/25 07:00 Intake Total 98.75 ml Balance 98.75 ml Intake IV Total 98.75 ml General Appearance: Other (Unable to assess) Lungs: Other (Mechanical ventilation) Cardiovascular: Normal S1, Normal S2 Abdomen: Other (Absent bowel sounds) Genitourinary: No Apparent Abnormalities (Gonzalez catheter, anuric ) Musculoskeletal: Other (No motor movement) Skin: Dry, Intact Medications Current Medications Medications Dose Ordered Sig/Sharon Route Start Time Stop Time Status Last Admin Dose Admin Pantoprazole Sodium 40 mg DAILY IV 11/13/25 10:00 11/13/25 09:30 40 MG Azithromycin 250 ml @ 125 mls/hr DAILY IV 11/13/25 10:00 11/13/25 09:30 125 MLS/HR Ceftriaxone Sodium 50 ml @ 100 mls/hr DAILY@09 IV 11/13/25 09:00 11/13/25 09:29 100 MLS/HR Sodium Chloride 1,000 ml @ 60 mls/hr [id number] IV 11/12/25 15:15 11/12/25 19:58 60 MLS/HR Enoxaparin Sodium 30 mg DAILY SC 11/13/25 10:00 11/13/25 09:31 30 MG Diagnostic Test (Pha) 1 strip ACHS 11/13/25 07:00 11/13/25 07:00 1 STRIP Insulin Human Regular ACHS SC 11/12/25 23:00 11/12/25 23:27 4 UNITS Acetaminophen/ Hydrocodone Bitart 1 tab Q4HP PRN PO 11/12/25 22:30 Ondansetron HCl 4 mg Q4HP PRN IV 11/12/25 22:30 Acetaminophen 650 mg Q6HP PRN PO 11/12/25 22:30 Hydralazine HCl 10 mg Q6HP PRN IV 11/12/25 22:30 Dextrose 50 ml UD PRN IV 11/12/25 22:45 11/13/25 08:56 50 ML Morphine Sulfate 2 mg Q4HPRN PRN IV 11/12/25 22:45 11/12/25 22:46 2 MG Midazolam HCl 100 ml @ 1 mls/hr Q24H IV 11/13/25 05:15 11/13/25 06:38 1 MLS/HR Fentanyl Citrate 250 ml @ 2.5 mls/hr Q24H IV 11/13/25 05:15 11/13/25 06:41 2.5 MLS/HR Norepinephrine Bitartrate 250 ml @ 3.75 mls/hr Q24H IV 11/13/25 06:30 11/13/25 09:42 56.25 MLS/HR Phenylephrine HCl 250 ml @ 30 mls/hr Q8H20M IV 11/13/25 06:30 11/13/25 06:50 30 MLS/HR Vasopressin 20 units/Sodium Chloride 100 ml @ 9 mls/hr Q11H7M IV 11/13/25 06:30 11/13/25 06:47 9 MLS/HR Laboratory Results Laboratory Tests 11/13/25 06:03 Chemistry Test 11/12/25 12:14 11/13/25 06:03 Calcium Level 9.3 mg/dL (8.7-10.4) 8.0 mg/dL (8.7-10.4) L Albumin 3.5 g/dL (3.2-4.8) Total Protein 5.8 g/dL (5.7-8.2) Lipid panel Test 11/12/25 12:14 Lipase 93 U/L (12-53) H LFT Test 11/13/25 06:03 Alanine Aminotransferase (ALT) 167 U/L (7-40) H Alkaline Phosphatase 75 U/L (46-116) Aspartate Amino Transferase (AST) 339 U/L (13-40) H Total Bilirubin 0.5 mg/dL (0.2-1.0) HgA1c, TSH Test 11/12/25 12:14 Hemoglobin A1c 7.0 % A1C (<5.7) H Urinalysis Test 11/12/25 12:20 Urine Color Yellow (Yellow) Urine Clarity Clear (Clear) Urine pH 5.0 (5.0-9.0) Urine Specific [place] 1.022 (1.001-1.035) Urine Protein 1+ (Negative) H Urine Ketones Trace (Negative) Urine Blood 1+ /uL (Negative) H Urine Nitrite Negative (Negative) Urine Bilirubin Negative (Negative) Urine Urobilinogen Normal mg/dL (Negative) Urine Leukocyte Esterase Negative /uL (Negative) Urine RBC 1 /hpf (0 - 4) Urine Microscopic WBC 1 /HPF (0-5) Urine Squamous Epithelial Cells Few /hpf (<5) Urine Bacteria None seen /hpf (None Seen) Urine Hyaline Casts Few /lpf (0 - 2) Urine Mucus Few (None Seen) Urine Glucose 4+ mg/dL (Normal) H Microbiology Microbiology Date/Time Source Procedure Growth Status 11/12/25 12:20 Voided Urine Urine Culture - Preliminary Resulted Labs and/or images reviewed: Labs reviewed by me, Image(s) reviewed by me Assessment/Plan Assessment/Plan Impression: -status post cardiopulmonary arrest -ischemic bowel -acute kidney injury, vasomotor nephropathy -septic shock -large hiatal hernia -diabetes mellitus -primary hypertension Plan: -long discussion made with the patient's family who were bedside. Patient was originally made comfort measures, subsequently was resuscitated while on the Medical/Surgical floor. Notation was reviewed and discussed with patient's family by our surgeon, Dr. Lee. Family was made aware of her terminal status. At this time they are waiting for additional family to show up from [place]. Patient we will be made a DNR status with continuation of current care. Family is agreeable to this plan. Primary nurse also at bedside witnessing this decision. -continue current vasopressors, do not increase -continue current sedation -continue antibiotic therapy Poor prognosis Critical care time spent with patient discussing and formulating plan of care: 90 minutes. This does not include time spent performing procedures. This medical document was created using an electronic medical record system with [employer] dictation system. Although this document has been carefully reviewed, there may still be some phonetic and typographical errors. These areas are purely typographical due to imperfections of the software programs, and do not reflect any compromise in the patient's medical care. Plan discussed with: Patient, Daughter, Other (RN) Date of Service: Nov 13, 2025 Billing Provider: JONI CONN NP Common Visit Codes: 72776-[id number] CARE 30-74 MIN, [id number] CARE-EACH +30MIN JONI CONN NP Nov 13, 2025 11:03
[2025-11-13] MEDS ORDERED: EPINEPHrine HCL 1 MG/10 ML SYRG IV ONE (11:58)
[2025-11-13] MEDS ORDERED: SODIUM BICARB 8.4% 50Meq/50ml SYR INJ IV ONE (11:58)
--- NOTE | 2025-11-14 07:47 | DVHDS2 ---
Discharge Summary Date of Admission Nov 12, 2025 at 18:05 Date of Discharge: Nov 13, 2025 Admitting Diagnosis Acute Abdominal pain Labs/Diagnostic Data: Laboratory Results Test 11/13/25 08:51 11/13/25 06:03 11/12/25 17:28 11/12/25 12:20 POC Glucose 55 mg/dl (70-106) White Blood Count 11.8 10^3/uL (4.4-10.8) Red Blood Count 4.26 10^6/uL (4.0-5.20) Hemoglobin 12.9 g/dL (12.2-16.2) Hematocrit 39.4 % (36.0-46.0) Mean Corpuscular Volume 92.3 fL (80.0-100.0) Mean Corpuscular Hemoglobin 30.1 pg (28.0-32.0) Mean Corpuscular Hemoglobin Concent 32.6 g/dL (32.0-36.0) Red Cell Distribution Width 14.2 % (11.8-14.3) Platelet Count 156 10^3/uL (140-450) Mean Platelet Volume 9.4 fL (6.9-10.8) Neutrophils (%) (Auto) 72.3 % (37.0-80.0) Lymphocytes (%) (Auto) 15.3 % (10.0-50.0) Monocytes (%) (Auto) 12.2 % (0.0-12.0) Eosinophils (%) (Auto) 0.0 % (0.0-7.0) Basophils (%) (Auto) 0.2 % (0.0-2.0) Neutrophils # (Auto) 8.5 10 ^3/uL (1.6-8.6) Lymphocytes # (Auto) 1.8 10 ^3/uL (0.4-5.4) Monocytes # (Auto) 1.4 10 ^3/uL (0-1.3) Eosinophils # (Auto) 0 10 ^3/uL (0-0.8) Basophils # (Auto) 0 10 ^3/uL (0-0.2) Nucleated Red Blood Cells 0.1 % Sodium Level 141 mmol/L (136-145) Potassium Level 5.2 mmol/L (3.5-5.1) Chloride Level 106 mmol/L (98-107) Carbon Dioxide Level 13 mmol/L (20-31) Anion Gap 22 (5-15) Blood Urea Nitrogen 43 mg/dL (9-23) Creatinine 2.21 mg/dL (0.550-1.02) Glomerular Filtration Rate Calc 22 mL/min (>90) BUN/Creatinine Ratio 19.5 (10.0-20.0) Serum Glucose 71 mg/dL (74-106) Calcium Level 8.0 mg/dL (8.7-10.4) Total Bilirubin 0.5 mg/dL (0.2-1.0) Aspartate Amino Transferase (AST) 339 U/L (13-40) Alanine Aminotransferase (ALT) 167 U/L (7-40) Alkaline Phosphatase 75 U/L (46-116) Total Protein 5.8 g/dL (5.7-8.2) Albumin 3.5 g/dL (3.2-4.8) Lactic Acid Level 4.3 mmol/L (0.4-2.0) Urine Color Yellow (Yellow) Urine Clarity Clear (Clear) Urine pH 5.0 (5.0-9.0) Urine Specific [place] 1.022 (1.001-1.035) Urine Protein 1+ (Negative) Urine Ketones Trace (Negative) Urine Blood 1+ /uL (Negative) Urine Nitrite Negative (Negative) Urine Bilirubin Negative (Negative) Urine Urobilinogen Normal mg/dL (Negative) Urine Leukocyte Esterase Negative /uL (Negative) Urine RBC 1 /hpf (0 - 4) Urine Microscopic WBC 1 /HPF (0-5) Urine Squamous Epithelial Cells Few /hpf (<5) Urine Bacteria None seen /hpf (None Seen) Urine Hyaline Casts Few /lpf (0 - 2) Urine Mucus Few (None Seen) Urine Glucose 4+ mg/dL (Normal) Test 11/12/25 12:14 Differential Total Cells Counted 100.0 (100) Neutrophils % (Manual) 92 (37.0-80.0) Band Neutrophils % (Manual) 3 Lymphocytes % (Manual) 3 (10.0-50.0) Monocytes % (Manual) 2 (0-12) Eosinophils % (Manual) 0 (0-7) Basophils % (Manual) 0 (0.0-2.0) Metamyelocytes % (manual) 0 Myelocytes % (Manual) 0 Promyelocytes % (Manual) 0 Blast Cells % (Manual) 0 Reactive Lymphocytes 0 Platelet Estimate Adequate Red Blood Cell Morphology Normal Hemoglobin A1c 7.0 % A1C (<5.7) Troponin I High Sensitivity 24 ng/L (</=34) Lipase 93 U/L (12-53) Other Laboratory Tests 11/13/25 06:03 Brief Hx & Hospital Course: History of Present Illness 85-year-old Latvian speaking female presents to the ED accompanied by her granddaughter for evaluation of abdominal pain associated with nausea and vomiting that began yesterday. Patient denies fever, chills, cough, shortness of breath, chest pain, diarrhea, constipation, melena, hematochezia, or urinary symptoms. No sick contacts or recent travel reported. Past medical history of diabetes type 2 and hypertension. Course of hospitalization: Long discussion was made with the family by surgeon, Dr. Lee regarding patient being catastrophic only ill and a nonsurgical candidate given her pneumatosis of entirety of stomach as well as small-bowel from proximal to mid section. Patient's family initially placed with the patient on comfort measures, with the patient subsequently having worsening clinical status at which time they revoked the comfort measures status and made with the patient is a full code for which the patient was resuscitated with ACLS measures and placed on mechanical ventilation and vasopressors. I, myself had a long discussion with the patient's family after these events, at which time they were agreeable to revert the patient to a DNR status and continue current treatment until patient is a come to her medical condition. Shortly after the discussion, all patient's family were bedside and patient became asystolic, with assessment and time of declared by myself at 11:38 a.m. on 11/13/2025. Total time spent with patient discussing and formulating plan of care: 35 minutes. This medical document was created using an electronic medical record system with [employer] dictation system. Although this document has been carefully reviewed, there may still be some phonetic and typographical errors. These areas are purely typographical due to imperfections of the software programs, and do not reflect any compromise in the patient's medical care. Consults/Reason for consult Surgery: Pneumatosis of stomach and intestine Condition at Discharge: Poor Final Diagnosis/Problems List Septic shock secondary to pneumatosis of stomach and small intestine -status post cardiopulmonary arrest -ischemic bowel -acute kidney injury, vasomotor nephropathy -septic shock -large hiatal hernia -diabetes mellitus -primary hypertension Discharge Disposition: at Hospital [facility] Discharge Statement: "Patient was advised to return to the ER or call 911 if any headaches, dizziness, shortness of breath, chest pain, abdominal pain, bleeding, fevers, or worsening of medical condition. Patient was counseled about treatment plan, medications, possible side effects, patientverbalized understanding. All questions were answered to the best of my ability. This discharge took greater then 30 minutes in planning, reviewing documentation, counseling the patient, and discussing with other team members." ASSESSMENT ASSESSMENT Assessment Date of Service: Nov 13, 2025 Billing Provider: JONI CONN NP Common Visit Codes: 12135-PBS/OBS DISCH DAY >30min JONI CONN NP Nov 14, 2025 07:47
--- NOTE | 2025-11-17 08:02 | ECG ---
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
== END 2025-11-13 15:53 | DRG 720 ==
LOC: ER 11:46 → UNDOADMIN 15:11 → OVERFLOW 15:11 → EAST 21:01 → ICU WEST 11-13 07:18
PROVIDERS: ADMIT Nurse Practitioner Acute Care; ATTEND Nurse Practitioner Acute Care
PROC: 5A12012 Performance of Cardiac Output, Single, Manual (ICD-10-PCS; principal; 2025-11-13)
PROC: 5A1935Z Respiratory Ventilation, Less than 24 Consecutive Hours (ICD-10-PCS; 2025-11-13)
PROC: 0BH17EZ Insertion of Endotracheal Airway into Trachea, Via Natural or Artificial Opening (ICD-10-PCS; 2025-11-13)
DX: A41.9 Sepsis, unspecified organism (principal); N17.0 Acute kidney failure with tubular necrosis; R65.21 Severe sepsis with septic shock; K55.9 Vascular disorder of intestine, unspecified; I10 Essential (primary) hypertension; E11.9 Type 2 diabetes mellitus without complications; Z66 Do not resuscitate; Z86.74 Personal history of sudden cardiac arrest; K63.89 Other specified diseases of intestine; K44.9 Diaphragmatic hernia without obstruction or gangrene; Z90.49 Acquired absence of other specified parts of digestive tract; Z79.84 Long term (current) use of oral hypoglycemic drugs
CPT/HCPCS: 36415; 36600; 71045; 74176; 80048; 80053; 81001; 82805; 82962; 83036; 83605; 83690; 84484; 85007; 85025; 85027; 87040; 87070; 87077; 87086; 87186; 87205; 92950; 93005; 94002; 96361; 96374; 99291; 99292; G0378; J1815; J1885; J2405; J2470; J3490